=== PATIENT | female | born 1950 | race Caucasian/White ===

== ENCOUNTER → 2016-09-21 | Outpatient (CLI) | payer OTHER, MEDICARE | LOC: BMCIMAGING 12:31 | PROVIDERS: ATTEND Internal Medicine Rheumatology | DX: M25.741 Osteophyte, right hand (principal); M25.742 Osteophyte, left hand; S63.23 Subluxation of proximal interphalangeal joint of finger; S63.231A Subluxation of proximal interphalangeal joint of left index finger, initial encounter ==

== ENCOUNTER → 2016-11-22 | Outpatient (CLI) | payer OTHER, MEDICARE | LOC: BMCIMAGING 08:23 | PROVIDERS: ATTEND Orthopaedic Surgery | DX: Z47.89 Encounter for other orthopedic aftercare (principal); Z96.611 Presence of right artificial shoulder joint ==

== ENCOUNTER → 2018-05-02 | Outpatient (CLI) | payer OTHER, MEDICARE | LOC: BMCIMAGING 12:46 | PROVIDERS: ATTEND Internal Medicine | DX: R07.81 Pleurodynia (principal) | CPT/HCPCS: 71101-PO ==

== ENCOUNTER → 2018-09-17 | Outpatient (CLI) | payer OTHER, MEDICARE | LOC: BMCIMAGING 08:15 | PROVIDERS: ATTEND Physician Assistant | DX: M16.12 Unilateral primary osteoarthritis, left hip (principal) ==

== ENCOUNTER → 2018-09-19 | Outpatient (CLI) | payer OTHER, MEDICARE | LOC: BMCIMAGING 09:57 | PROVIDERS: ATTEND Physician Assistant | DX: M25.552 Pain in left hip (principal) ==